=== PATIENT | female | born 1955 | race Caucasian/White ===

== ENCOUNTER 2018-08-15 17:37 | Emergency (ER) | payer MEDICARE, OTHER ==
[2018-08-15 18:16] LABS: URINE APPEARANCE CLEAR; URINE BILIRUBIN NEGATIVE (NEGATIVE); URINE BLOOD NEGATIVE (NEGATIVE); URINE COLOR YELLOW; URINE GLUCOSE (UA) NEGATIVE (NEGATIVE); URINE KETONE NEGATIVE (NEGATIVE); URINE LEUKOCYTE ESTERASE NEGATIVE (NEGATIVE); URINE NITRITE NEGATIVE (NEGATIVE); URINE PROTEIN NEGATIVE (NEGATIVE); URINE UROBILINOGEN 0.2 E.U./dL (0.20 - 1.00)
--- NOTE | 2018-08-15 18:33 | Emergency Department Record ---
History of Present Illness - General Chief Complaint: Hypertension Stated Complaint: Hypertension Time Seen by Provider: 08/15/18 18:12 Source: Patient Mode of Arrival: Ambulatory Limitations: No limitations - History of Present Illness Initial Comments: pt has been on bp meds for years, she was recently changed to a new one and all started taking claritin. since then she has been finding that her bp has been very high . she had to go to [facility] a few days ago because of headache and htn. she had a neg head ct. she felt like her pressure was high again today and found it to be over 200. she has no other symptoms Onset/Timin -: Days(s) Timing: Unsure History of Same: Yes History of Trauma: No Severity: Moderate Improves With: Nothing Worsens With: Nothing Associated Symptoms: Denies other symptoms - [place] Coma Scale Eye Response: (4) Open spontaneously Motor Response: (6) Obeys commands Verbal Response: (5) Oriented [place] Total: 15 - Symptoms of Stroke Onset of Symptoms Date: 08/12/18 - Related Data Home Medications Medication Instructions Recorded Confirmed Last Taken Aspirin [Aspirin EC] 81 mg PO DAILY 08/15/18 08/15/18 1 Day Ago ~08/14/18 Cyclobenzaprine HCl [Flexeril] 10 mg PO BID PRN 08/15/18 08/15/18 1 Day Ago ~08/14/18 Ibuprofen [Motrin] 800 mg PO Q8H PRN 08/15/18 08/15/18 1 Day Ago ~08/14/18 Levothyroxine Sodium [Synthroid] 100 mcg PO DAILY 08/15/18 08/15/18 1 Day Ago ~08/14/18 Loratadine [Claritin] 10 mg PO DAILY 08/15/18 08/15/18 1 Day Ago ~08/14/18 Losartan Potassium [Cozaar] 100 mg PO DAILY 08/15/18 08/15/18 1 Day Ago ~08/14/18 Metformin HCl 1,000 mg PO QPM 08/15/18 08/15/18 1 Day Ago ~08/14/18 Metformin HCl 1,500 mg PO QAM 08/15/18 08/15/18 1 Day Ago ~08/14/18 Simvastatin [Zocor] 20 mg PO DAILY 08/15/18 08/15/18 1 Day Ago ~08/14/18 Sitagliptin Phosphate [Januvia] 100 mg PO DAILY 08/15/18 08/15/18 1 Day Ago ~08/14/18 Allergies Allergy/AdvReac Type Severity Reaction Status Date / Time No Known Drug Allergies Allergy Verified 08/15/18 17:50 Travel Screening - Travel/Exposure Within Last 30 Days Have you traveled within the last 30 days?: No - Travel/Exposure Within Last Year Have you traveled outside the [place] in the last year?: No - Additonal Travel Details Have you been exposed to anyone with a communicable illness?: No - Travel Symptoms Symptom Screening: None Review of Systems Reviewed: No additional complaints except as noted below Constitutional: Reports: As per HPI. Denies: Chills, Fever, Malaise, Night sweats, Weakness, Weight change Eyes: Reports: As per HPI. Denies: Eye discharge, Eye pain, Photophobia, Vision change ENT: Reports: As per HPI. Denies: Congestion, Dental pain, Ear pain, Epistaxis , Hearing loss, Throat pain Respiratory: Reports: As per HPI. Denies: Cough, Dyspnea, Hemoptysis, Stridor, Wheezes Cardiovascular: Reports: As per HPI. Denies: Arrhythmia, Chest pain, Dyspnea on exertion, Edema, Murmurs, Orthopnea, Palpitations, Paroxysmal nocturnal dyspnea, Rheumatic Fever, Syncope Endocrine: Reports: As per HPI. Denies: Fatigue, Heat or cold intolerance, Polydipsia, Polyuria Gastrointestinal: Reports: As per HPI. Denies: Abdominal pain, Constipation, Diarrhea, Hematemesis, Hematochezia, Melena, Nausea, Vomiting Genitourinary: Reports: As per HPI. Denies: Abnormal menses, Discharge, Dyspareunia, Dysuria, Frequency, Hematuria, Incontinence, Retention, Urgency Musculoskeletal: Reports: As per HPI. Denies: Arthralgia, Back pain, Gout, Joint swelling, Myalgia, Neck pain Skin: Reports: As per HPI. Denies: Bruising, Change in color, Change in hair/ nails, Lesions, Pruritus, Rash Neurological: Reports: As per HPI. Denies: Abnormal gait, Confusion, Headache, Numbness, Paresthesias, Seizure, Tingling, Tremors, Vertigo, Weakness Psychiatric: Reports: As per HPI. Denies: Anxiety, Auditory hallucinations, Depression, Homicidal thoughts, Suicidal thoughts, Visual hallucinations Hematological/Lymphatic: Reports: As per HPI. Denies: Anemia, Blood Clots, Easy bleeding, Easy bruising, Swollen glands Past Medical History - SOCIAL HISTORY Smoking Status: Never smoker Alcohol Use: Occasional Drug Use: None - RESPIRATORY Hx Respiratory Disorders: No - CARDIOVASCULAR Hx Cardio Disorders: Yes Hx Hypertension: Yes Comment:: murmur - NEURO Hx Neuro Disorders: Yes Hx Headaches: Yes (rare) - GI Hx GI Disorders: No - Hx Genitourinary Disorders: No - ENDOCRINE Hx Diabetes: Yes (NIDDM) Hx Thyroid Disease: Yes - MUSCULOSKELETAL Hx Gout: Yes (??) - PSYCH Hx Psych Problems: No - HEMATOLOGY/ONCOLOGY Hx Hematology/Oncology Disorders: No Family Medical History Any Significant Family History?: Yes Hx Cancer: Brother/Sister, Grandparents Hx Diabetes: Mother Hx Heart Disease: Mother, Grandparents Physical Exam - General General Appearance: Alert, Oriented x3, Cooperative, No acute distress - Head Head exam: Normal inspection - Eye Eye exam: Normal appearance, PERRL, EOMI Pupils: Normal accommodation - ENT ENT exam: Normal exam, Mucous membranes moist, Normal external ear exam, Normal orophraynx Ear exam: Normal external inspection. negative: External canal tenderness Nasal Exam: Normal inspection. negative: Discharge, Sinus tenderness Mouth exam: Normal external inspection, Tongue normal Teeth exam: Normal inspection. negative: Dental caries Throat exam: Normal inspection. negative: Tonsillar erythema, Tonsillar exudate - Neck Neck exam: Normal inspection, Full ROM. negative: Tenderness - Respiratory Respiratory exam: Normal lung sounds bilaterally. negative: Respiratory distress - Cardiovascular Cardiovascular Exam: Normal rhythm, Normal heart sounds, Tachycardia - GI/Abdominal GI/Abdominal exam: Soft, Normal bowel sounds. negative: Tenderness - Rectal Rectal exam: Deferred - exam: Deferred - Extremities Extremities exam: Normal inspection, Full ROM, Normal capillary refill. negative: Tenderness - Back Back exam: Reports: Normal inspection, Full ROM. Denies: Muscle spasm, Rash noted, Tenderness - Neurological Neurological exam: Alert, CN II-XII intact, Normal gait, Oriented X3 - Psychiatric Psychiatric exam: Normal affect, Normal mood - Skin Skin exam: Dry, Intact, Normal color, Warm Course Vital Signs 08/15/18 08/15/18 17:38 18:10 Temperature 97.8 F Pulse Rate 103 H Pulse Rate [ 83 Pulse Ox Probe] Respiratory 18 16 Rate Blood Pressure 225/120 Blood Pressure 204/101 [Left Arm] Pulse Ox 97 96 - Reevaluation(s) Reevaluation #1: 08/15/18 20:03 pt feels much better Medical Decision Making - Lab Data Result diagrams: 08/15/18 18:15 08/15/18 18:15 Lab Results 08/15/18 Range/Units 18:10 Urine Color Yellow Urine Appearance Clear Urine pH 6.0 (5.0-8.0) Ur Specific [place] 1.015 (1.002-1.030) Urine Protein Negative (NEGATIVE) Urine Glucose (UA) Negative (NEGATIVE) Urine Ketones Negative (NEGATIVE) Urine Blood Negative (NEGATIVE) Urine Nitrite Negative (NEGATIVE) Urine Bilirubin Negative (NEGATIVE) Urine Urobilinogen 0.2 (0.20 - 1.00) E.U./dL Ur Leukocyte Esterase Negative (NEGATIVE) Disposition Disposition: Discharge Clinical Impression: Hypertension Qualifiers: Hypertension type: essential hypertension Qualified Code(s): I10 - Essential ( primary) hypertension Disposition: Home, Self-Care Condition: (1) Good Instructions: Hypertension (ED) Additional Instructions: follow up with family doctor tomorrow. return sooner if worse. rest. stop claritin. rest. recheck blood pressure tomorrow Forms: Patient Portal Access Quality - Quality Measures Quality Measures: N/A - Blood Pressure Screening Does Patient Have Any of the Following: No Blood Pressure Classification: Hypertensive Reading Systolic Measurement: 225 Diastolic Measurement: 120 Screening for High Blood Pressure: < First Hypertensive BP, F/U Documented > [ [id number]] First Hypertensive Follow-up Interventions: Follow-up with rescreen GT 1 day and LT 4 weeks.
[2018-08-15 18:35] LABS: BASO % 0.1 % (0-6); EOS % 2.7 % (0-6); GRAN % 50.5 % (47-80); HEMATOCRIT 36.2 % (35.0-47.0); HEMOGLOBIN 11.9 gm/dl (11.6-16.0); LYMPH % 40.1 % (16-45); MEAN CELL VOLUME 87.4 fl (81-97); MEAN CORPUSCULAR HEMOGLOBIN 28.7 pg (27-33); MEAN CORPUSCULAR HGB CONC 32.9 g/dl (32-36); MEAN PLATELET VOLUME 9.4 fl (7.4-10.4); MONO % 6.6 % (0-9); PLATELET COUNT 292 K/uL (130-400); RED BLOOD COUNT 4.14 M/uL (3.80-5.40); WHITE BLOOD COUNT W/O DIFF 7.3 K/uL (4.2-12.2)
[2018-08-15] MEDS: CLONIDINE HCL 0.1 MG TABLET PO ONE (18:40)
[2018-08-15 18:52] LABS: BLOOD UREA NITROGEN 17 mg/dL (8-23); CREATININE 0.7 mg/dL (0.5-0.9); EST GLOMERULAR FILTRATION RATE > 60 mL/min
[2018-08-15 18:55] LABS: GLUCOSE,RANDOM 132 mg/dL (74-109)
== END 2018-08-15 20:22 | disposition home or self-care (01) ==
LOC: ER 17:37
DX: I10 Essential (primary) hypertension (principal); R51 Headache; E11.9 Type 2 diabetes mellitus without complications; Z79.84 Long term (current) use of oral hypoglycemic drugs
CPT/HCPCS: 80048; 81003; 84484; 85025; 93005; 93010; 99284